=== PATIENT | female | born 1980 | race Caucasian/White ===

== ENCOUNTER 2021-06-17 06:10 | Day surgery (SDC) | payer BC, SELFPAY ==
--- NOTE | 2021-05-21 12:23 | PCM.HP.BLA ---
History and Physical Date of Admission: 06/17/21 HPI: The patient is a 40 year old female presenting for pre-operative visit. She is scheduled for TLH, bilateral salpingectomy , for menorrhagia, pelvic pain and intramural uterine fibroid. Procedure discussed along with risks, benefits and complications. Other alternatives discussed for management. Consent form signed? no. ? ? PAST MEDICAL HISTORY PAST MEDICAL HISTORY Diagnosis Date ? NEGATIVE MEDICAL HISTORY ? ? ? PAST SURGICAL HISTORY PAST SURGICAL HISTORY Procedure Laterality Date ? SECTION HX ? 2000 ? INSERT INTRAUTERINE DEVICE ? 09/2010, 09/08/2015 ? ? ? CURRENT MEDICATIONS Current Outpatient Medications Medication Sig Dispense Refill ? MULTIVITAMIN ORAL Take by mouth. womans ultra rene from [facility] ? ? ? levonorgestrel (MIRENA) 20 mcg/24 hr (5 years) IUD Inserted in office 1 Each 0 ? No current facility-administered medications for this visit. ? ? ALLERGIES: Penicillin ? PERSONAL HISTORY: SOCIAL HISTORY Social History ? Tobacco Use ? Smoking status: Current Some Day Smoker ? Smokeless tobacco: Never Used ? Tobacco comment: past social smoker Vaping Use ? Vaping Use: Never used Substance Use Topics ? Alcohol use: Yes ? ? Comment: occ ? Drug use: No ? FAMILY HISTORY: FAMILY HISTORY FAMILY HISTORY Problem Relation Age of Onset ? Diabetes Father ? ? since has no problems with sugar ? Stroke Father ? ? Stroke Maternal Grandmother ? ? Heart Attack Maternal Grandfather ? ? Heart Paternal Grandmother ? ? ? REVIEW OF SYMPTOMS: GENERAL: denies fevers or chills ENDOCRINOLOGY: has not been on steroids Cardiology : denies palpitations or chest pain Respiratory: denies SOB or cough Hematology: denies history of prolonged bleeding or easy bruising or VTE Allergy: Denies history of personal or family history of allergy to anesthesia ? PHYSICAL EXAMINATION: ? VITALS: Blood pressure 108/70, weight 175 lb (79.4 kg), last menstrual period 07/28/2015. ? GENERAL: The patient is well nourished, well hydrated in no acute distress. , The patient is oriented to time, place, and person. NECK: Supple. No lynphadenopathy, normal thyroid, no thyromegaly. LUNGS: Clear to auscultation bilaterally. no wheezes, rhonchi or rales HEART: Regular rate and rhythm, Normal heart sounds and No murmurs or gallops ? PELVIC US 03/27/2021: ? Indication IUD strings not seen, menorrhagia Impression retroverted fibroid uterus that measures 107 mm x 87 mm x 79 mm. One large fibroid ?that is anterior that measures 8.9cm in greatest dimension. Due to the large fibroid unable to visualize endometrium even with 3D rendering. There is what appears to be an IUD to the left lateral aspect of fibroid but difficult to tell where exactly IUD is placed. Both ovaries appear normal. No free fluid inc culdesac Recommendations consider hysteroscopic evaluation or further imaging for IUD localization and removal. Menstrual History LMP on 03/20/2021. Cycle: heavy, regular cycle. Bleeding: menorrhagia. Contraception: Intrauterine contraceptive device Method Transvaginal, 3D ultrasound examination. Uterus Visualized. Long 107 mm x ap 87 mm x tr 79 mm. Vol 385.5 cm? enlarged and dyshomogeneous with fibroids which are described below Position: retroverted Endometrium: endometrial midline: not defined Fibroid(s) ? Size 89 mm x 67 mm x 74 mm. Mean 76.7 mm. Vol 231.044 cm?. Anterior. Smooth bordered margin Right Ovary Visualized. Outline: smooth. Morphology: normal. Size 33 mm x 26 mm x 16 mm. Vol 7.3 cm? Left Ovary Visualized. Outline: smooth. Morphology: normal. Size 33 mm x 27 mm x 26 mm. Vol 12.1 cm? ? ? IMPRESSION: Menorrhagia, pelvic pain, intramural uterine fibroids ? PLAN: The risks/benefits/alternatives and personal involved for the planned total laparoscopic hysterectomy with bilateral salpingectomy and possible vaginal morcellation of the uterus were reviewed with the patient. Her questions were answered to her satisfaction and she desires to proceed. Consent was signed. I reviewed with her postop instructions and expectations. ? I have reviewed and updated past medical and surgical history, medications and allergies Assessment & Plan Assessment/Plan (1) Intramural uterine fibroid: (2) Pelvic pain: (3) Menorrhagia:
--- NOTE | 2021-06-14 16:22 | HP.PCM_ITS ---
History and Physical Date of Admission: 06/17/21 HPI: The patient is a 30 year old female presenting for pre-operative visit. She is scheduled for , for breech on 06/17. Procedure discussed along with risks, benefits and complications. Other alternatives discussed for management. Consent form signed? Yes. ? ? PAST MEDICAL HISTORY PAST MEDICAL HISTORY Diagnosis Date ? Depression and anxiety ? ? Gestational diabetes mellitus, class A1 04/12/2021 ? IBS (irritable bowel syndrome) ? ? ? PAST SURGICAL HISTORY PAST SURGICAL HISTORY Procedure Laterality Date ? CHOLECYSTECTOMY HX ? CURRENT MEDICATIONS Current Outpatient Medications Medication Sig Dispense Refill ? insulin NPH human (HUMULIN N NPH INSULIN KWIKPEN) 100 unit/mL (3 mL) injection pen Inject 40 Units subcutaneously daily at bedtime. 1 Pen 1 ? triamcinolone acetonide (KENALOG) 0.1 % cream Apply to affected area twice daily. 45 g 0 ? Insulin [place], Disposable, (BD ULTRA-FINE JOY PEN NEEDLE) 32 gauge x 5/32 30 Each once daily. 30 Each 1 ? blood sugar diagnostic test strip 1 Strip four times daily. Use as instructed 120 Strip 9 ? Lancets lancets 1 Each four times daily. Use as instructed 120 Each 9 ? MELATONIN ORAL Take by mouth. ? ? ? omeprazole magnesium (PRILOSEC ORAL) Take by mouth. ? ? ? diphenhydrAMINE HCl (UNISOM, DIPHENHYDRAMINE,) 50 mg/30 mL liqd Take by mouth. ? Irhlvbke-Fn-Ota-Fe-FA ( VITAMIN) tab Take 1 tablet by mouth. ? ? ? cholecalciferol, vitamin D3, (VITAMIN D3 ORAL) Take by mouth. ? ? ? No current facility-administered medications for this visit. ? ? ALLERGIES: Morphine ? PERSONAL HISTORY: SOCIAL HISTORY Social History ? Tobacco Use ? Smoking status: Never Smoker ? Smokeless tobacco: Never Used Vaping Use ? Vaping Use: Never used Substance Use Topics ? Alcohol use: No ? Drug use: No ? FAMILY HISTORY: FAMILY HISTORY FAMILY HISTORY Problem Relation Age of Onset ? Depression Mother ? ? other (Diverticulitis) Mother ? ? other (stomach ulcers) Mother ? ? other (stomach ulcers) Sister ? ? No Known Problems Brother ? ? Heart Maternal Grandfather ? ? No Known Problems Sister ? ? No Known Problems Brother ? ? ? REVIEW OF SYMPTOMS: GENERAL: denies fevers or chills ENDOCRINOLOGY: has not been on steroids Cardiology : denies palpitations or chest pain Respiratory: denies SOB or cough Hematology: denies history of prolonged bleeding or easy bruising or VTE Allergy: Denies history of personal or family history of allergy to anesthesia ? PHYSICAL EXAMINATION: ? VITALS: Last menstrual period 09/17/2020. ? GENERAL: The patient is well nourished, well hydrated in no acute distress. , The patient is oriented to time, place, and person. NECK: Supple. No lynphadenopathy, normal thyroid, no thyromegaly. LUNGS: Clear to auscultation bilaterally. no wheezes, rhonchi or rales HEART: Regular rate and rhythm, Normal heart sounds and No murmurs or gallops ? IMPRESSION: Estimated Date of Delivery: 06/24/21 for primary c/s for breech, GDM A2 ? PLAN: The risks/benefits/alternatives and personal involved for the planned delivery were reviewed with the patient. Her questions were answered to her satisfaction and she desires to proceed. Consent was signed. I reviewed with her postop instructions and expectations. ? ? I have reviewed and updated past medical and surgical history, medications and allergies
--- NOTE | 2021-06-16 09:52 | EKG12_ITS ---
Test Reason : PREOP Blood Pressure : / mmHG Vent. Rate : 071 BPM Atrial Rate : 071 BPM P-R Int : 120 ms QRS Dur : 076 ms QT Int : 362 ms P-R-T Axes : 060 040 015 degrees QTc Int : 393 ms Normal sinus rhythm Normal ECG Confirmed by USHA GIRON, ELIGIO ([id number]), copy editor MYLA LUZ ([id number]) on 06/18/2021 10:24:57 AM Referred By: Jane García Confirmed By:ELIGIO KERR MD
[2021-06-17] VITALS (12 sets, daily range): BP systolic 91–160; BP diastolic 46–117; PULSE 59–89; RESP 16; TEMP 36.1–36.6; O2SAT 96–100; BMI 30.9
--- NOTE | 2021-06-17 | HYST_PTH ---
PATIENT: SHREE SHANNON LOC: [facility] [place] U#:[id number] AGE/SX: 40/F ROOM: RE06/17/[address]: Dr. Jane García MD : 1980 BED: DIS: 06/17/2021 SPEC #: [id number] RECD: 06/17/21 13:36 STATUS: SUHAIL RENain #: [id number] INES: 06/17/21 00:[address]: Jane García DEPT: SURGICAL PATHOLOGY RECD BY: Mina Newell ENTERED: 06/17/21 13:37 SP TYPE: HYSTERECT OTHR DR: No Primary Care Phys Tissues: Uterus, NOS Procedures: Surgery Specimen Level V HEADER OPERATION: ERAS, total laparoscopic hysterectomy with salpingectomy PRE-OP DIAGNOSIS: Intramural uterine fibroid, pelvic pain, menorrhagia TISSUE SUBMITTED: Cervix, uterus, bilateral fallopian tubes MICROSCOPIC DIAGNOSIS Uterus, hysterectomy: Cervix ? minimal chronic inflammation. Endometrium ? benign stromal hyperplasia consistent with exogenous hormonal effect. Myometrium ? leiomyomas and superficial adenomyosis. Right and left fallopian tubes ? focal endometriosis. AM:nehemias 06/18/2021 MICROSCOPIC DESCRIPTION Slides are reviewed. GROSS DESCRIPTION Received in fixative is one container labeled with the patient's name and designated uterus. The specimen consists of a uterus received in seven fragments. The endometrial cavity has previously been opened and contains a T-shaped plastic IUD device measuring 3.5 x 3.5 cm. The device is intact and without migration outside the cavity. A distinct endocervical canal is not identified. The presumed endocervix and ectocervix are grossly unremarkable. A distinct endometrial cavity is not identified. The myometrium averages 2 cm in greatest thickness and contains multiple rubbery, spherical nodules ranging in size from 0.5 to 7.5 cm. Serial sections of the nodules reveal whorled appearances without areas of cyst formation, necrosis or hemorrhage. Present free in the container are two fallopian tubes with an average length of 4 cm and average diameter of 0.5 cm. The fallopian tubes are not designated as to right or left. Both fallopian tubes contain normal fimbriated ends. Sand Technician sections are submitted as follows: 1 & 2 - cervix, 3-6 - endometrium and myometrium, 7 - largest myometrial mass, 8??second largest myometrial mass, 9 - third myometrial mass, 10 - one fallopian tube, 11 - the other fallopian tube. / AM:nehemias 06/17/21 TC:1 CPT: 87953
[2021-06-17 06:55] LABS: Internal QC Validated? YES +Cl - CLEAR BKGD; Pregnancy, Urine Negative Negative
[2021-06-17] MEDS: Enoxaparin 40 MG/0.4 ML Syringe SC (07:16)
[2021-06-17] MEDS: dexAMETHasone 10 MG/ML Vial 8 MG IV (07:16)
[2021-06-17] MEDS: Phenazopyridine 95 MG Tablet 190 MG PO (07:16)
[2021-06-17] MEDS: Lactated Ringers 1,000 ML 40 ML IV ×3 (07:16→13:00)
[2021-06-17] MEDS: Celecoxib 200 MG Capsule 400 MG PO (07:16)
[2021-06-17] MEDS: Gabapentin 600 MG Tablet PO (07:16)
[2021-06-17] MEDS: Acetaminophen 500 MG Tablet 1000 MG PO (07:17)
[2021-06-17] MEDS: Scopolamine 1mg/72hr Patch 1 PATCH TD (07:17)
[2021-06-17 07:25] LABS: Bedside Glucose 82 mg/dL (70-110)
[2021-06-17] MEDS: Cefazolin 2 GM in 0.9% Normal Saline 100 ML IV (08:42)
[2021-06-17] MEDS: Bupivacaine Mpf 0.5% 30 ML VIAL (11:00)
[2021-06-17] MEDS: Ondansetron 4 MG/2 ML Vial IV (11:15)
--- NOTE | 2021-06-17 11:33 | PCM.DC ---
Discharge Instructions Activity May resume sexual activity in: 6-8 weeks and - (Nothing in your vagina for 6 weeks. No vaginal or anal intercourse for 6-8 weeks) Dressing / Incision Call your doctor if your incision/area has: Continuous Slow Oozing, Sudden Increased Bleeding and Foul Smelling Discharge Call your doctor if you observe: Fever of 101 or Higher Cleanse incision/area with: Soap & Water and - (Your incisions have skin glue, it can get wet, leave the glue on until it falls off. ) Follow Up Care Please Follow Up With: Jane García MD When: With my office in 1-2 and 6 weeks or as needed. [phone] Test Results: Test results from this visit will be discussed in further detail at your follow-up appointment, if applicable. Discharge Plan Admission Primary Reason for Your Visit: hysterectomy Attending Provider: Jane García Primary Care Provider: Care Physician,Isabella Primary Discharge Orders/Prescriptions Prescriptions: New oxycodone 5 MG tablet 5 mg PO Q6H PRN PRN (Reason: severe pain) 7 Days Qty: 20 RF: 0 ibuprofen [ibuprofen] 600 MG tablet 600 mg PO Q6H PRN (Reason: Pain) Qty: 60 RF: 1 Continued multivitamin Tablet 1 tab PO DAILY RF: 0 Discontinued Mirena 20 mcg/24 hours (6 yrs) 52 mg Intrauterine Device 20 mcg INTRAUTERINE DAILY RF: 0 ibuprofen [Advil] 200 mg Tablet 200 mg PO Q6H PRN (Reason: Pain) RF: 0 Referrals / Follow Up: Care Physician,No Primary [Primary Care Provider] - Disposition Disposition (needs filled in before D/C Order can be placed): Home, Self Care
--- NOTE | 2021-06-17 11:37 | PCM.OPRPT ---
Problems Associated Problem List Diagnoses (1) Intramural uterine fibroid: (2) Pelvic pain: (3) Menorrhagia: Report of Operation Date of Procedure: 06/17/21 Pre-Operative Diagnosis: menorrhagia, uterine fibroids Post-Operative Diagnosis: same Surgery/Procedure Performed:: TLH, bilateral salpingectomy and cystoscopy Description of Surgical Findings:: enlarged boggy uterus, multiple fibroids, normal cervix, vagina and bladder. Unremarkable ovaries. Surgeon: Jane García older worker specialist: Mee Young Type of Anesthesia: General/Supplemental Anesthesiologist: Levi Schwartz Special Medications: none Specimen's removed: uterus, cervix and bilateral tubes. Uterine and cervical weight was 400 g in the operating room. Drains: none Estimated Blood Loss (mL): 200 Fluids Replaced: 1200 Description of Procedure: The patient was taken to the operating room where she was prepped and draped in the dorsal lithotomy position. Her arms were tucked to the side and padded and her legs were placed in the yellowfin stirrups. Care was taken to ensure that she was placed in a neurologically safe and neutral position. A weighted speculum was placed in the vagina and the anterior lip of the cervix was grasped with a single-tooth tenaculum. The cervix sounded to 12 centimeters. The oracle reports developer uterine manipulator placed into the cervix and the balloon inflated. The Mckinnon catheter was placed to straight drain. Attention was turned to the abdominal portion of the case. Before skin incisions were made they were infiltrated with 0.5% Marcaine solution for local anesthetic. A 5 mm intraumbilical incision was made and while tenting the anterior abdominal wall up with towel clamps a 5 mm blade less trocar and sleeve were advanced directly into the peritoneal cavity. Peritoneal placement was confirmed with the laparoscope the pneumoperitoneum was created, and the underlying abdominal contents were intact. The patient was placed in Trendelenburg and the above findings were noted. Right and left lateral 5 mm trochars were placed under direct visualization without difficulty. The filmy adhesions of the anterior abdominal wall were taken down with the LigaSure device. The adhesions of the anterior abdominal wall to the uterus were then taken down with the LigaSure device. The antimesenteric portion of the tube was clamped sealed and transected serially on both sides with the LigaSure device. The round ligaments were clamped sealed and transected and a window was made in the peritoneum. The utero-ovarian ligaments were then clamped sealed and transected with the LigaSure device and the pedicles were hemostatic. A fourth port was placed approximately 4 cm above the umbilicus under direct visualization to help with manipulation of the uterus. The uterus was so large it was difficult to manipulate and we often had to use a tenaculum to help manipulate it. Dr. Delacruz provided camera guidance, tissue manipulation and assistance with the general surgical aspects of the case. The bladder flap was dissected down with the LigaSure device and blunt dissection and the uterine arteries were then skeletonized. The uterine arteries were clamped sealed and transected on both sides with the LigaSure device. Then along the cardinal ligament uterine arteries adjacent to the cervix were clamped sealed and transected with the LigaSure device to move them away from the vaginal cuff angle. At this point the pedicles were all examined and found to be hemostatic. The bladder flap was rechecked and found to be adequately down. The monopolar tip of the LigaSure device was then used to enter the anterior vagina. The vaginal manipulator cup was noted in the vaginal colpotomy incision was made circumferentially around the cup. Again, because of the bulk of the uterus and the location the fibroids it took approximately an extra 30 minutes to perform the laparoscopic portion of the hysterectomy and the colpotomy incision itself. When the 3 and 9:00 positions of the cervicovaginal junction were reached these were clamped sealed and transected with the LigaSure device to secure any small remaining vessels. At this point the pedicles were hemostatic from above and attention was turned to the vaginal portion of the case again. The uterus had to be bivalved in order to allow it to be removed from the vagina. This took approximately 15 minutes of extra time because of the bulk of the uterus and the location of fibroids. The uterus was brought intact out through the vaginal colpotomy incision along with the tubes There is some bleeding from the left vaginal cuff angle and this was grasped with an Allis clamp. Vaginal angle sutures were placed on both sides with 0 Vicryl sutures and care was taken to ensure that the uterosacral ligament was secured into this stitch. The remainder the vagina was then closed horizontally with interrupted 0 Vicryl sutures. The cuff was hemostatic vaginally. The Mckinnon catheter was removed and a cystoscopy was performed. The bladder appeared normal and was intact. Both ureteral orifices were noted and both ureteral jets were seen. The cystoscope was removed and the Mckinnon catheter was placed back to straight drain. A sponge stick was placed in the vagina to help place traction against the vaginal cuff and the pneumoperitoneum was re-created. Both ureters were seen peristalsing in the peritoneal cavity. The suction radio electronics technician was used to remove any blood and clots from the peritoneal cavity. The pedicles were reexamined and found to be hemostatic. The vaginal cuff was hemostatic. Some Jennifer was placed over the cuff and the pedicles and no active bleeding was noted through the Jennifer. The right and left lateral ports were taken out and the sites were hemostatic. The pneumoperitoneum was released and even under low pressure there was no bleeding of any of the pedicles are vaginal cuff. The umbilical port was removed. The umbilical skin incisions were closed with Monocryl suture and skin glue by Dr. Delacruz. The vaginal instruments were removed by me and a vaginal sweep was completed by me. The surgery was performed by me with assistance other than the portions dictated as above. There were no qualified residents available for this procedure. All sponge lap and needle counts were correct and the patient was transferred to the recovery room in stable condition. Grafts/Implants Used: none Procedure Start Time: 09:04 Procedure Stop Time: 11:14 Complications none Admit VTE Documentation VTE Present on Admission: No VTE Mechan Device Prophylaxis: SCD's VTE Pharm Prophylaxis ordered?: No Reason prophylaxis not ordered:: Procedure Not Indicated
[2021-06-17] MEDS: Ketorolac 30 MG/ML Syringe IV ×2 (12:59→15:59)
[2021-06-17 14:29] LABS: Hematocrit 37.5 % (37-47); Hemoglobin 12.5 g/dL (12.0-15.0); Mean Corp Hgb Conc 33.3 g/dL (32-36); Mean Corpuscular Hgb 33.1 pg (27.0-32.0); Mean Corpuscular Volume 99.2 fL (81-99); Mean Platelet Vol. 9.2 fl (6.2-12.0); Platelet Count 314 K/mm3 (150-450); RBC Distribution Width CV 13.1 % (11.6-14.6); RBC Distribution Width SD 47.2 fl (35.1-43.9); Red Blood Count 3.78 M/mm3 (4.2-5.4)
[2021-06-17] MEDS: proCHLORPERazine 10 MG/2 ML Vial IV (15:59)
== END 2021-06-17 16:45 | disposition home or self-care (01) ==
LOC: SDC 06:10 → AC 06:10
PROVIDERS: Anesthesiology; Referring Provider Obstetrics & Gynecology; Visit Provider Obstetrics & Gynecology
PROC: 0UT94ZZ Resection of Uterus, Percutaneous Endoscopic Approach (ICD-10-PCS; CPT 52000; principal; 2021-06-17 08:15)
DX: D25.1 Intramural leiomyoma of uterus (principal); R10.2 Pelvic and perineal pain; N92.0 Excessive and frequent menstruation with regular cycle; K66.0 Peritoneal adhesions (postprocedural) (postinfection); F17.200 Nicotine dependence, unspecified, uncomplicated; Z82.49 Family history of ischemic heart disease and other diseases of the circulatory system; Z88.0 Allergy status to penicillin; Z83.3 Family history of diabetes mellitus; N85.8 Other specified noninflammatory disorders of uterus
CPT/HCPCS: 52000; 58573; 81025; 82962; 83735; 85027; 86850; 86900; 86901; 87426; 88307; 93005; C9803; J7120; J2405

== ENCOUNTER 2021-06-25 20:08 | Inpatient (IN) | payer BC, SELFPAY ==
[2021-06-17 07:09] VITALS: BMI 30.9
[2021-06-25 20:28] VITALS: BP 113/64; PULSE 89; RESP 16; TEMP 36.8; O2SAT 100; BMI 29.7
[2021-06-25] MEDS: 0.9% Saline Lock 10 ML Syringe IV (21:49)
[2021-06-25] MEDS: 0.9% Normal Saline 1,000 ML 100 ML IV (21:49)
[2021-06-26 03:09] VITALS: BP 104/59; PULSE 78; RESP 16; TEMP 37.2; O2SAT 100
--- NOTE | 2021-06-26 03:47 | PCM.RX.CS ---
Consult Pharmacy has been consulted to manage selected antiobiotic: Gentamicin Type of Consult: New start Pharmacy Plan for Drug Dosing: Pharmacy Service will continue to monitor and adjust dosing as required. Medications Gentamicin Sulfate 280 mg/ (Dextrose) 57 mls @ 100 mls/hr IVPB Q24H ONE Stop: 06/26/21 23:34 Discontinued Medications Gentamicin Sulfate 280 mg/ (Dextrose) 57 mls @ 100 mls/hr IVPB X1 ONE Stop: 06/25/21 21:40 Last Admin: 06/25/21 23:48 Dose: Infused Documented by: Follow-Up Labs: Trough Gentamicin Labs to be done on [date and time ordered]: 06/26 @ 1100 RANDOM
[2021-06-26 08:03] LABS: Absolute Lymphocyte Count 1.44 X10^3/uL (0.83-4.51); Absolute Neutrophil Count 7.8 X10^3/uL (2.0-7.7); Basophil# 0.04 X10^3/uL; Basophil% 0.4 % (0-1); Eosinophils% 1.9 % (0-5); Hematocrit 29.8 % (37-47); Hemoglobin 9.5 g/dL (12.0-15.0); Lymphocyte # 1.44 X10^3/ul (0.83-4.51); Lymphocyte % 13.6 % (19-41); Mean Corp Hgb Conc 31.9 g/dL (32-36); Mean Corpuscular Hgb 32.3 pg (27.0-32.0); Mean Corpuscular Volume 101.4 fL (81-99); Mean Platelet Vol. 9.5 fl (6.2-12.0); Monocyte# 0.92 X10^3/uL; Monocyte% 8.7 % (0-10); NRBC Flagged by Analyzer 0.3 % (0-5); Neutrophil # 7.79 X10^3/uL (2.7-7.7); Neutrophil % 73.9 % (47-70); Platelet Count 478 K/mm3 (150-450); RBC Distribution Width SD 48.3 fl (35.1-43.9); Red Blood Count 2.94 M/mm3 (4.2-5.4); White Blood Count 10.6 K/mm3 (4.4-11.0)
[2021-06-26 08:14] LABS: Anion Gap 6 (5-15); BUN 8 mg/dL (7-18); BUN/Creat Ratio 10.2 RATIO (10-20); Calcium,Total 8.4 mg/dL (8.5-10.1); Chloride 106 mmol/L (98-107); Creatinine, Serum 0.78 mg/dL (0.55-1.02); EST Glomerular Filtration Rate 86 mL/min (>60); Est Glom Filt Rate - Afr Amer 105 mL/min (>60); Estimated Creatinine Clearance 83.62 ml/min; Glucose 105 mg/dL (74-106); Potassium 3.6 mmol/L (3.5-5.1); Sodium Level 138 mmol/L (136-145)
[2021-06-26 08:53] VITALS: BP 99/49; PULSE 79; RESP 16; TEMP 37.2; O2SAT 98
--- NOTE | 2021-06-26 10:02 | HP.PCM.OB_ITS ---
HPI - General General Date of Admission: 06/25/21 HPI Narrative SHREE SHANNON, is a 40 F who presents with a likely pelvic infection postoperatively. She had a hysterectomy with Dr. García about 1 week ago. Over the last several days she has experienced fevers, chills, body aches, neha ise. She had a fever of 101.4 at home. She is experience nausea and a decreased appetite. She is not eating well. She has also noticed bright red vaginal bleeding. PFSH PFSH Medical History Alcohol use Heartburn History of COVID-19 Hx of tonsillitis Smoker Home Medications multivitamin 1 tab PO DAILY 06/10/21 [History Last Taken 06/15/21] ibuprofen 600 mg PO Q6H PRN #60 tablet 06/17/21 [Rx Last Taken Unknown] Allergy/AdvReac Type Severity Reaction Status Date / Time Penicillins [PCN] Allergy Rash Verified 06/17/21 06:26 Surgical History (Updated 06/26/21 @ 10:[address] Emily Solomon, DO) History of surgery History of wisdom tooth extraction Social History Smoking Status: Current some day smoker tobacco type: cigarettes and e- cigarettes Vital Signs Vital Signs Vital Signs: 06/25/21 20:28 06/26/21 03:09 06/26/21 08:53 Temperature 98.3 F 98.9 F 98.9 F Temperature Source Oral Oral Oral Pulse Rate 89 78 79 Pulse Strength Normal (2+) Respiratory Rate 16 16 16 Blood Pressure 113/64 104/59 L 99/49 L Blood Pressure Mean 80 74 65 Blood Pressure Source Monitor Monitor Monitor Blood Pressure Position Semi-Fowlers Semi-Fowlers Semi-Fowlers Blood Pressure Location Right Arm Right Arm Right Arm Pulse Ox 100 100 98 Oxygen Delivery Method Room Air Room Air Room Air Weight Weight: 173 lb 4.533 oz Body Mass Index (BMI) 29.7 Physical Exam Const alert and no apparent distress General Appearance: comfortable HEENT normocephalic GI soft to palpation and non-distended GI Narrative: Area of ecchymosis over right side of abdomen that measures about 7x5 cm. Labs Labs Labs: Blood Type AB POSITIVE Antibody Screen NEGATIVE Hct 29.8 % (37-47) L Hgb 9.5 g/dL (12.0-15.0) L Assessment & Plan (1) S/P hysterectomy: PLAN: WBC elevated at 13 with left shift as outpatient. CAT scan was nonspecific but showed blood present within the pelvis and could not rule out infection. No active bleeding noted on the CAT scan. Patient admitted for postoperative infection status post a hysterectomy given fevers, elevated white count, and a CAT scan that cannot rule out infection. Will trend labs and monitor for fevers. Will start IV gent and Clinda given penicillin allergy. Will reassess after 24 hours of IV antibiotics. (2) Post op infection:
--- NOTE | 2021-06-26 10:06 | PCM.PN.OB ---
Subjective Subjective Patient doing well this morning. She feels improved. Still having some nausea and decreased appetite. Had a few bites for breakfast this morning without emesis. Pain is well controlled with Motrin and Tylenol. She felt some additional chills last night. No leg pain. No chest pain or shortness of breath. Having some light, bright red bleeding from the vagina. Objective Data Objective Data Vital Signs: Vital Signs Temp Pulse Resp BP Pulse Ox 98.9 F 79 16 99/49 L 98 06/26/21 08:53 06/26/21 08:53 06/26/21 08:53 06/26/21 08:53 06/26/21 08:53 Oxygen Delivery Method Room Air Weight: 173 lb 4.533 oz Body Mass Index (BMI) 29.7 Intake & Output: Intake and Output for Last 24 Hours 06/24/21 06/25/21 06/26/21 23:59 23:59 23:59 Intake Total 304.67 / 404.67 1106 / 1106 Output Total 800 / 800 Balance 304.67 / 104.67 306 / 306 Lab / Micro Data Result Diagrams: 06/26/21 07:27 06/26/21 07:27 Labs: Laboratory Results - last 24 hr 06/26/21 07:27: WBC 10.6, RBC 2.94 L, Hgb 9.5 L, Hct 29.8 L, MCV 101.4 H, MCH 32.3 H, MCHC 31.9 L, RDW Std Deviation 48.3 H, RDW Coeff of Bryanna 13.0, Plt Count 478 H, MPV 9.5, Immature Gran % (Auto) 1.500 H, Neut % (Auto) 73.9 H, Lymph % (Auto) 13.6 L, [place] % (Auto) 8.7, Eos % (Auto) 1.9, Baso % (Auto) 0.4, Absolute Neuts (auto) 7.8 H, Absolute Lymphs (auto) 1.44, Nucleated RBC % 0.3 06/26/21 07:27: Sodium 138, Potassium 3.6, Chloride 106, Carbon Dioxide 26.0, Anion Gap 6, BUN 8, Creatinine 0.78, Estim Creat Clear Calc 83.62, Est GFR (MDRD) Af Amer 105, Est GFR (MDRD) Non-Af 86, BUN/Creatinine Ratio 10.2, Glucose 105, Calcium 8.4 L Physical Exam Const alert General Appearance: comfortable HEENT normocephalic GI soft to palpation, non-tender and non-distended GI Narrative: Area of ecchymosis noted Extremity normal to inspection Assessment & Plan (1) Post op infection: PLAN: Patient feeling improved this morning. Has been afebrile. White blood cell count trending down. We will continue IV antibiotics for 24 hours. Continue SCDs for DVT prophylaxis. Continue Zofran as needed for nausea. Pain is well controlled. Discussed with patient will reassess in the morning, and if continuing to do well will discharge home on a course of oral antibiotics. (2) S/P hysterectomy:
[2021-06-26] MEDS: 0.9% Normal Saline 1,000 ML 100 ML IV ×2 (11:05→21:05)
[2021-06-26 11:41] LABS: Gentamicin, Random 0.5 ug/mL
--- NOTE | 2021-06-26 11:55 | CASEMGMT ---
KATHERIN RAJAN assessment: Face to Face with patient for initial transition planning/care coordination assessment. KATHERIN RAJAN introduced self and role at [facility], pt voices understanding and consents to assessment. Pt is sitting up in bed in no distress. Pt is A/Ox4 and answers all questions appropriately. Care providers, pharmacy, and demographics verified. Presentation: Pt was direct admit for pelvic infection/abscess s/p hyster 06/17 Admitting dx: Pelvic infection PCP: Pt states does not have PCP and list provided at this time. Specialists: Darrel García Preferred [facility]acy: [facility] [place]: [place] Prescription Benefit: [place] Living Will/HPOA: Pt states does not have LW/HPOA but would like AD info and info provided at this time. LNOK: Delonte Santos, Living Arrangements: Pt states lives with in home and states no concerns at home. Pt is independent with ADL's. Transportation: Pt states drives self and states no transportation concerns. DME/HHC: Pt states no current DME or need for any. Pt states no hx of HHC or SNF. Pt states no concerns with going home at time of discharge. 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 Pt states occasionally smokes cigarettes and drinks ETOH. Pt states no further concerns/needs. CM to follow for any further discharge planning/needs. Advised pt to ask for CM if any further questions/concerns/needs arise, voices understanding. Pt Goal: Home Plan[place] KATHERIN RAJAN
[2021-06-26 12:42] VITALS: BP 104/52; PULSE 87; RESP 18; TEMP 37.3; O2SAT 98
--- NOTE | 2021-06-26 15:32 | NURSING ---
Encouraged pt to get up oob and ambulate in hooks.
[2021-06-26] MEDS: Ibuprofen 600 MG Tablet PO (17:43)
[2021-06-26 17:48] VITALS: BP 107/60; PULSE 84; RESP 18; TEMP 36.8; O2SAT 94
[2021-06-26 20:26] VITALS: BP 108/52; PULSE 81; RESP 18; TEMP 37.2; O2SAT 99
[2021-06-27 02:38] VITALS: BP 103/50; PULSE 74; RESP 18; TEMP 36.9; O2SAT 99
[2021-06-27 06:54] LABS: Absolute Lymphocyte Count 1.21 X10^3/uL (0.83-4.51); Absolute Neutrophil Count 5.1 X10^3/uL (2.0-7.7); Basophil# 0.03 X10^3/uL; Basophil% 0.4 % (0-1); Eosinophil# 0.14 X10^3/uL; Eosinophils% 1.9 % (0-5); Hematocrit 27.1 % (37-47); Hemoglobin 8.6 g/dL (12.0-15.0); Lymphocyte # 1.21 X10^3/ul (0.83-4.51); Lymphocyte % 16.1 % (19-41); Mean Corp Hgb Conc 31.7 g/dL (32-36); Mean Corpuscular Hgb 32.7 pg (27.0-32.0); Mean Platelet Vol. 9.6 fl (6.2-12.0); Monocyte# 0.91 X10^3/uL; Monocyte% 12.1 % (0-10); NRBC Flagged by Analyzer 0.4 % (0-5); Neutrophil # 5.11 X10^3/uL (2.7-7.7); Neutrophil % 68.2 % (47-70); Platelet Count 404 K/mm3 (150-450); RBC Distribution Width CV 12.9 % (11.6-14.6); RBC Distribution Width SD 48.5 fl (35.1-43.9); Red Blood Count 2.63 M/mm3 (4.2-5.4); White Blood Count 7.5 K/mm3 (4.4-11.0)
[2021-06-27 08:30] VITALS: BP 106/55; PULSE 79; RESP 18; TEMP 36.6; O2SAT 100
--- NOTE | 2021-06-27 08:47 | PCM.PN.OB ---
Subjective Subjective Patient is doing well. She feels improved. Still having some nausea and decreased appetite. Tolerating regular diet without vomiting. Diarrhea is improving and now having more formed stools. Urinating without difficulty. Does have some pelvic pressure with standing. Pain is well controlled. No fevers. No leg pain. Vaginal bleeding has improved. She desires to go home today. Objective Data Objective Data Vital Signs: Vital Signs Temp Pulse Resp BP Pulse Ox 98.5 F 74 18 103/50 L 99 06/27/21 02:38 06/27/21 02:38 06/27/21 02:38 06/27/21 02:38 06/27/21 02:38 Oxygen Delivery Method Room Air Weight: 173 lb 4.533 oz Body Mass Index (BMI) 29.7 Intake & Output: Intake and Output for Last 24 Hours 06/25/21 06/26/21 06/27/21 23:59 23:59 23:59 Intake Total 304.67 / 404.67 3175.00 / 3175.00 1006 / 1006 Output Total 1550 / 1550 1200 / 1200 Balance 304.67 / 104.67 1625.00 / 1625.00 -194 / -194 Lab / Micro Data Result Diagrams: 06/27/21 05:30 06/26/21 07:27 Labs: Laboratory Results - last 24 hr 06/26/21 11:00: Random Gentamicin 0.5 06/27/21 05:30: WBC 7.5, RBC 2.63 L, Hgb 8.6 L, Hct 27.1 L, MCV 103.0 H, MCH 32.7 H, MCHC 31.7 L, RDW Std Deviation 48.5 H, RDW Coeff of Bryanna 12.9, Plt Count 404, MPV 9.6, Immature Gran % (Auto) 1.300 H, Neut % (Auto) 68.2, Lymph % (Auto) 16.1 L, [place] % (Auto) 12.1 H, Eos % (Auto) 1.9, Baso % (Auto) 0.4, Absolute Neuts (auto) 5.1, Absolute Lymphs (auto) 1.21, Nucleated RBC % 0.4 Physical Exam Const alert General Appearance: comfortable GI soft to palpation, non-tender and non-distended Extremity no calf tenderness Assessment & Plan (1) S/P hysterectomy: PLAN: Patient clinically improved. Afebrile. WBC improved. Vaginal bleeding has stopped. Okay for discharge home on 10 day course of oral antibiotics. To have follow up this week in the office. (2) Post op infection:
--- NOTE | 2021-06-27 08:50 | DS.PCM_ITS ---
Providers Date of Admission: 06/25/21 Primary Care Physician: Isabella Primary Care Phys Reason For Visit: PELVIC INFECTION Diagnosis Discharge Diagnosis (1) S/P hysterectomy: Status: Acute Code(s): Z90.710 - Acquired absence of both cervix and uterus (2) Post op infection: Status: Acute Code(s): T81.40XA - Infection following a procedure, unspecified, initial encounter Medications at Discharge Home Medications multivitamin 1 tab PO DAILY 06/10/21 ibuprofen 600 mg PO Q6H PRN #60 tablet 06/17/21 doxycycline hyclate 100 mg PO BID 10 Days #20 cap 06/27/21 fluconazole [Diflucan] 150 mg PO Q3D #2 tab 06/27/21 metronidazole [Flagyl] 500 mg PO BID 10 Days #20 tab 06/27/21 Hospital Course Summary of Care Provided Hospital Course: Patient was admitted about 1 week out from a hysterectomy for a suspected pelvic infection. She was having fevers at home and had an elevated white count. CAT scan was performed as an outpatient that could not rule out infection, and blood was present in the pelvis. No active bleeding noted on CAT scan. She was admitted for 24 hours of IV antibiotics. Her white blood cell count improved. Clinically she improved. She remained afebrile. She was discharged home in good condition after 24 hours of IV antibiotics on a course of oral antibiotics, and with follow-up in the office. Weight / BMI Weight Weight: 173 lb 4.533 oz Body Mass Index (BMI) 29.7 ABG / Lab / Microbiology Data Result Diagrams: 06/27/21 05:30 06/26/21 07:27 Laboratory: Laboratory Results - last 24 hr 06/26/21 11:00: Random Gentamicin 0.5 06/27/21 05:30: WBC 7.5, RBC 2.63 L, Hgb 8.6 L, Hct 27.1 L, MCV 103.0 H, MCH 32.7 H, MCHC 31.7 L, RDW Std Deviation 48.5 H, RDW Coeff of Bryanna 12.9, Plt Count 404, MPV 9.6, Immature Gran % (Auto) 1.300 H, Neut % (Auto) 68.2, Lymph % (Auto) 16.1 L, [place] % (Auto) 12.1 H, Eos % (Auto) 1.9, Baso % (Auto) 0.4, Absolute Neuts (auto) 5.1, Absolute Lymphs (auto) 1.21, Nucleated RBC % 0.4 Meaningful Use Info Meaningful Use Diagnoses (Choose all that apply): None applicable Discharge Plan Admission Admit Date/Time: 06/25/21 20:08 Primary Reason for Your Visit: Pelvic infection post hysterectomy Attending Provider: Emily Solomon Primary Care Provider: Care Physician,No Primary Instructions Patient Instructions: Hysterectomy Home Care Discharge Orders/Prescriptions Prescriptions: New doxycycline hyclate 100 mg capsule 100 mg PO BID 10 Days Qty: 20 RF: 0 metronidazole [Flagyl] 500 mg tablet 500 mg PO BID 10 Days Qty: 20 RF: 0 fluconazole [Diflucan] 150 mg tablet 150 mg PO Q3D Qty: 2 RF: 0 Continued multivitamin Tablet 1 tab PO DAILY RF: 0 ibuprofen 600 MG tablet 600 mg PO Q6H PRN (Reason: Pain) Qty: 60 RF: 1 Referrals / Follow Up: Care Physician,No Primary [Primary Care Provider] - Disposition Disposition (needs filled in before D/C Order can be placed): Home, Self Care
== END 2021-06-27 10:53 | disposition home or self-care (01) | DRG 863 ==
PROVIDERS: Admitting Provider Obstetrics & Gynecology; Visit Provider Obstetrics & Gynecology
DX: T81.40XA Infection following a procedure, unspecified, initial encounter (principal); N73.9 Female pelvic inflammatory disease, unspecified; F17.210 Nicotine dependence, cigarettes, uncomplicated; Z90.710 Acquired absence of both cervix and uterus; Z86.16 Personal history of COVID-19
CPT/HCPCS: 36415; 80048; 80170; 85025; 99406; J7030; A4216